=== PATIENT | female | born 1950 | race Caucasian/White ===

== ENCOUNTER → 2016-10-12 | Outpatient (CLI) | payer MEDICARE, MEDICAID ==
[~2016-10-12] MED LIST: ASA CHILDREN'S81 MG PO; CIPRO750 MG PO; CORDARONE DPS200 MG PO; DECADRON-DPS4 MG PO; DILAUDID1 MG/ML IV; IMODIUM DPS2 MG PO; KENALOG OINT. 015 GM TP; LANOXIN125 MCG PO; LOTENSIN10 MG PO; MYCOSTATIN PWD15 GM TP; NITROSTAT0.4 MG SL; NORMAL SALINE FL5 ML IV; NORVASC5 MG PO; PEPCID DPS20 MG PO; PROBIOTIC1 EAC1 PO; QUESTRAN DPS4 GM PO; TESSALON PERLE100 M1 PO; TOPROL XL DPS25 MG PO; TYLENOL DPS325 MG PO; XANAX DPS0.25 MG PO; ZANTAC DPS150 MG PO
== END | disposition home or self-care (01) ==
DX: Z12.31 Encounter for screening mammogram for malignant neoplasm of breast (principal)

== ENCOUNTER → 2016-10-14 | Outpatient (CLI) | payer MEDICARE, MEDICAID | END | disposition home or self-care (01) | LOC: RAD.S 13:25 | DX: R92.8 Other abnormal and inconclusive findings on diagnostic imaging of breast (principal); N64.89 Other specified disorders of breast ==

== ENCOUNTER → 2016-11-05 | Outpatient (CLI) | payer MEDICARE, MEDICAID ==
--- NOTE | ~2016-11-05 | ECH ---
Transthoracic Echocardiography Report (TTE) Demographics Patient Name DESTINEE CRYSTAL Date of Study 11/05/2016 Patient Number [id number] Visit Number [id number] Date of 1950 Room Number Accession Number [id number] Gender Female Age 66 year(s) Referring Hermilo Hollis Band Saw Operator Loida Mora [facility] Physician MD Mariangel Brewer MD Physician Interpreting José Antonio Rojas MD Fender Mechanic Physician Supervising Ordering Physician Hermilo Hollis MD/ROSITA CHOPRA Nurse Stress Treating Machine Operator Conclusions Summary Limited exam for Ejection Fraction pre-chemo. Technically adequate exam. The estimated left ventricular ejection fraction is 60-65%. Mild concentric left ventricular hypertrophy. Normal right ventricle structure and function. Procedure Type of Study TTE procedure:Echo Limited SF. Procedure Date Date: 11/05/2016 Start: 11:09 AM Technical Quality: Adequate visualization Indications:Pre-chemotherapy. Appropriate Use Criteria: 9 Height: 63 inches Weight: 325 pounds BSA: 2.38 m Rhythm: Within normal limits HR: 71 bpm BP: 144/69 mmHg M-Mode/2D Measurements LV Diastolic Dimension: 4.94 cm LV Systolic Dimension: 3.37 cm LV Septum Diastolic: 1.26 cm LV PW Diastolic: 1.18 cm AO Root Dimension: 2.63 cm LA Dimension: 4.39 cm RV Diastolic Dimension: 3.49 cm LA volume: 66.89 ml LA volume index: 28 ml/m LVOT: 1.86 cm RV Base: 3 cm RV Mid: 1.9 cm TAPSE: 2.3 cm Doppler Measurements RA Area: 15.18 cm Findings Left Ventricle The left ventricle is normal in size . Mild concentric left ventricular hypertrophy. Right Ventricle Normal right ventricle structure and function. Left Atrium Normal left atrial size. Right Atrium Normal right atrial size. Mitral Valve Normal mitral valve structure and function. Aortic Valve Normal aortic valve structure and function. Tricuspid Valve Normal tricuspid valve structure and function. Pulmonic Valve The pulmonic valve is not well visualized. Pericardial Effusion No evidence of pericardial effusion. Miscellaneous Visualized portions of the aortic root and ascending aorta appear normal in size. Pleural Effusion No evidence of pleural effusion. Signature Electronically signed by José Antonio [facility]) on 11/05/2016 01:30 PM
== END | disposition home or self-care (01) ==
LOC: RAD.S 10:11
DX: C50.011 Malignant neoplasm of nipple and areola, right female breast (principal); K43.9 Ventral hernia without obstruction or gangrene; R91.8 Other nonspecific abnormal finding of lung field; Z98.890 Other specified postprocedural states

== ENCOUNTER 2016-11-12 05:36 | Day surgery (SDC) | payer MEDICARE, MEDICAID ==
[~2016-11-12] VITALS: Ht 157.5 cm; Wt 148.6 kg
[~2016-11-12 05:36] MED LIST changes: -CIPRO750 MG PO; -CORDARONE DPS200 MG PO; -DECADRON-DPS4 MG PO; -DILAUDID1 MG/ML IV; -IMODIUM DPS2 MG PO; -KENALOG OINT. 015 GM TP; -LANOXIN125 MCG PO; -MYCOSTATIN PWD15 GM TP; -NORMAL SALINE FL5 ML IV; -PROBIOTIC1 EAC1 PO; -QUESTRAN DPS4 GM PO; -TESSALON PERLE100 M1 PO; -TYLENOL DPS325 MG PO; -XANAX DPS0.25 MG PO; -ZANTAC DPS150 MG PO
--- NOTE | 2016-11-27 11:47 | OR ---
ADMIT: 11/12/2016 RM/LOC: [facility] MR#: [id number] [place], [place] [id number] DESTINEE CRYSTAL [address] [place] [address] Operative/Delivery Room Report SEX: F AGE: 66 : 1950 SURGERY DATE: 11/12/2016 SURGEON: Travis Mendez MD PREOPERATIVE DIAGNOSIS: Breast cancer, need for IV access for chemotherapy. POSTOPERATIVE DIAGNOSIS: Breast cancer, need for IV access for chemotherapy. PROCEDURES: Placement of left subclavian PowerPort, catheter length 24 cm. Placement, superior vena cava. ANESTHESIA: Local MAC anesthesia. ESTIMATED BLOOD LOSS: 20 mL or less. INDICATION FOR PROCEDURE: Please see H and P. DESCRIPTION OF PROCEDURE: After the risks, benefits, possible complications, and the alternatives had been explained, and informed consent had been obtained, the patient was taken back to the operating room, underwent sedation. The surgical field was prepped and draped in a sterile manner. The left infraclavicular area was anesthetized with lidocaine. The Cook needle was introduced in left subclavian vein with good aspiration. Guidewire was passed. Intraoperative fluoroscopy showed it to be in good position. Dissected out a pocket large enough for the port. The catheter was cut at 24 cm, placed in the port, and flushed with saline. Dilator and sheath were placed over top of the guidewire, the guidewire and dilator removed. The catheter threaded down the sheath and the sheath stripped away. There was good aspiration and flushing of the port. It was a little tough, but I felt it was in good position on fluoroscopy. It was sewn to subcutaneous pocket with a couple of silk sutures. There was good aspiration and flushing, like I said. Packed with heparin. Subcutaneous tissues closed with 3-0 Vicryl and 4-0 Monocryl for the skin. She tolerated the procedure well, was extubated and taken to recovery room in stable and satisfactory condition. Travis Mendez MD/ rosa JOB #: [id number] CC: Travis Mendez MD, Attending Physician Imer August MD, Family Physician
[2016-12-31] MEDS ORDERED: TESSALON PERLE100 M1 PO (14:52)
[2016-12-31] MEDS ORDERED: ZANTAC DPS150 MG PO (14:52)
[2016-12-31] MEDS ORDERED: XANAX DPS0.25 MG PO (14:52)
[2016-12-31] MEDS ORDERED: QUESTRAN DPS4 GM PO (14:52)
[2016-12-31] MEDS ORDERED: MYCOSTATIN PWD15 GM TP (14:53)
[2016-12-31] MEDS ORDERED: PROBIOTIC1 EAC1 PO (14:53)
[2016-12-31] MEDS ORDERED: LANOXIN125 MCG PO (14:53)
[2016-12-31] MEDS ORDERED: TYLENOL DPS325 MG PO (14:54)
[2016-12-31] MEDS ORDERED: IMODIUM DPS2 MG PO (14:54)
[2016-12-31] MEDS ORDERED: CORDARONE DPS200 MG PO (14:56)
[2016-12-31] MEDS ORDERED: CIPRO750 MG PO (14:56)
[2016-12-31] MEDS ORDERED: KENALOG OINT. 015 GM TP (14:57)
[2017-01-15] MEDS ORDERED: CORDARONE DPS200 MG PO (14:54)
[2017-01-15] MEDS ORDERED: DECADRON-DPS4 MG PO (14:54)
[2017-01-15] MEDS ORDERED: NORMAL SALINE FL5 ML IV (14:54)
[2017-01-15] MEDS ORDERED: DILAUDID1 MG/ML IV (14:55)
== END 2016-11-12 10:20 | disposition home or self-care (01) ==
LOC: SSS 05:36
PROC: B517YZA Fluoroscopy of Left Subclavian Vein using Other Contrast, Guidance (ICD-10-PCS; principal; 2016-11-12)
PROC: 05H633Z Insertion of Infusion Device into Left Subclavian Vein, Percutaneous Approach (ICD-10-PCS; principal; 2016-11-12)
DX: C50.011 Malignant neoplasm of nipple and areola, right female breast (principal); I10 Essential (primary) hypertension; K21.9 Gastro-esophageal reflux disease without esophagitis; E66.01 Morbid (severe) obesity due to excess calories; Z68.43 Body mass index [BMI] 50.0-59.9, adult; Z98.49 Cataract extraction status, unspecified eye; Z98.890 Other specified postprocedural states; Z90.49 Acquired absence of other specified parts of digestive tract; Z96.649 Presence of unspecified artificial hip joint; Z96.659 Presence of unspecified artificial knee joint; Z98.51 Tubal ligation status; Z88.2 Allergy status to sulfonamides; Z88.0 Allergy status to penicillin